=== PATIENT | female | born 1935 | race Caucasian/White ===

== ENCOUNTER 2020-11-04 14:57 | Inpatient (IN) | payer MEDICARE, OTHER ==
[~2020-11-04] VITALS: Ht 165.1 cm; Wt 58.3 kg
[~2020-11-04 14:57] MED LIST: CYSTEX TABLET1 EACH PO; DEPO-MEDRO80 MG/1 ML PO; DEXILANT60 MG PO; FLAGYL500 MG PO; MACRODANTIN100 MG PO; PEPCID20 MG PO; PRESERVISION T1 EACH PO; XOPENEX HFA15 G1; Z.0.ADVAIR 250-501 E; Z.0.ASPIRIN CHEW81 M PO; Z.0.COREG6.25 MG PO; Z.0.CRESTOR5 MG; Z.0.LEVOTHROID50 MCG PO; Z.0.LEXAPRO10 MG PO; Z.0.NORVASC2.5 MG PO; Z.0.PLAVIX75 MG
[2020-11-04] MEDS ORDERED: SODIUM CHLORIDE 0.9% 1000ML 1,000 ML IV SCH (15:45)
[2020-11-04 15:54] LABS: CLARITY,URINE HAZY (CLEAR); COLOR,URINE YELLOW (YELLOW)
[2020-11-04 15:55] LABS: KETONES,URINE NEGATIVE (NEGATIVE); LEUKOCYTE ESTERASE ,URINE MODERATE (NEGATIVE); NITRITE,URINE NEGATIVE (NEGATIVE); PROTEIN,URINE DIPSTICK NEGATIVE (NEGATIVE); URINE UROBILINOGEN 0.2 mg/dL (0.2 - 1)
[2020-11-04 15:57] LABS: BASOPHILS # (AUTO) 0.1 (0.0-0.1); BASOPHILS % 0.7 % (0.0-1.0); EOSINOPHILS # (AUTO) 0.2 (0.0-0.4); EOSINOPHILS % 2.9 % (0.0-6.0); HEMATOCRIT 37.6 % (34.2-44.1); HEMOGLOBIN 11.9 g/dL (12.0-16.0); LYMPHOCYTES # (AUTO) 2.3 (1.0-3.2); LYMPHOCYTES % 31.9 % (18.0-39.1); MEAN CORPUSCULAR HEMOGLOBIN 29.7 pg (28-32); MEAN CORPUSCULAR HGB CONC 31.6 g/dL (31-35); MEAN CORPUSCULAR VOLUME 93.8 fL (81-99); MONOCYTES # (AUTO) 0.7 (0.2-0.8); NEUTROPHILS % 55.1 % (38.7-80.0); PLATELET COUNT 242 x10e3/uL (140-360); RED BLOOD COUNT 4.01 x10e6/uL (3.6-5.1); RED CELL DISTRIBUTION WIDTH 13.2 % (11.7-14.4)
[2020-11-04 16:12] LABS: BACTERIA,URINE MODERATE /HPF; EPITHELIAL CELLS,URINE FEW /LPF; RBC,URINE 0-5 /HPF (0-5)
[2020-11-04 16:13] LABS: YEAST,URINE MODERATE
[2020-11-04 16:18] LABS: ALANINE AMINOTRANSFERASE 14 IU/L (0-55); ALBUMIN 3.9 g/dL (3.5-5.0); ALBUMIN/GLOBULIN RATIO 1.3 (0.8-2.0); ALKALINE PHOSPHATASE 89 IU/L (40-150); BLOOD UREA NITROGEN 16 mg/dL (7-26); BUN/CREATININE RATIO 22 (6-25); CALCIUM 9.3 mg/dL (8.4-10.2); CARBON DIOXIDE 29 mmol/L (22-29); CHLORIDE 106 mmol/L (98-107); CREATININE, SERUM 0.74 mg/dL (0.57-1.11); EST GLOMERULAR FILTRATION RATE > 60 ML/MIN (60-); GLUCOSE 85 mg/dL (74-118); SODIUM 143 mmol/L (136-145)
[2020-11-04] MEDS ORDERED: MORPHINE SULFATE INJ 2 MG/ML SYR IV PRN (16:45)
[2020-11-04] MEDS: AZTREONAM 1 GM/NS 50 ML 50 ML IV SCH (17:22)
[2020-11-04] MEDS ORDERED: FLUCONAZOLE 100 MG/NS 50 ML 50 ML IV ONE (17:30)
[2020-11-04] MEDS ORDERED: METOPROLOL TARTRATE INJ 1 MG/ML VIAL IV PRN (19:30)
[2020-11-04] MEDS: CARVEDILOL 12.5 MG TAB PO SCH (19:53)
[2020-11-04 20:30] VITALS: BP 165/87
[2020-11-04] MEDS: MORPHINE SULFATE INJ 4 MG/ML INJ 1ML IV PRN (21:00)
[2020-11-04] MEDS: ONDANSETRON HCL INJ 2MG/ML 2ML 2 MG/ML VIAL IV PRN (21:00)
[2020-11-04 21:45] VITALS: BP 165/87
[2020-11-05] VITALS (8 sets, daily range): BP systolic 100–132; BP diastolic 52–64
[2020-11-05] MEDS ORDERED: SODIUM CHLORIDE 0.9% 250ML 250 ML ONE (04:29)
[2020-11-05] MEDS: AZTREONAM 1 GM/NS 50 ML 50 ML IV SCH ×2 (04:30→16:15)
[2020-11-05] MEDS: MORPHINE SULFATE INJ 4 MG/ML INJ 1ML IV PRN (04:30)
[2020-11-05] MEDS: ONDANSETRON HCL INJ 2MG/ML 2ML 2 MG/ML VIAL IV PRN (04:30)
[2020-11-05 05:04] LABS: BASOPHILS # (AUTO) 0.1 (0.0-0.1); BASOPHILS % 0.8 % (0.0-1.0); EOSINOPHILS # (AUTO) 0.2 (0.0-0.4); EOSINOPHILS % 3.2 % (0.0-6.0); HEMATOCRIT 33.4 % (34.2-44.1); HEMOGLOBIN 10.6 g/dL (12.0-16.0); LYMPHOCYTES # (AUTO) 2.5 (1.0-3.2); LYMPHOCYTES % 39.7 % (18.0-39.1); MEAN CORPUSCULAR HGB CONC 31.7 g/dL (31-35); MEAN CORPUSCULAR VOLUME 94.6 fL (81-99); MONOCYTES # (AUTO) 0.6 (0.2-0.8); MONOCYTES % 9.9 % (4.4-11.3); NEUTROPHILS # (AUTO) 2.9 (2.1-6.9); NEUTROPHILS % 46.2 % (38.7-80.0); PLATELET COUNT 201 x10e3/uL (140-360); RED BLOOD COUNT 3.53 x10e6/uL (3.6-5.1); RED CELL DISTRIBUTION WIDTH 13.2 % (11.7-14.4)
[2020-11-05 05:25] LABS: ANION GAP 11.3 mmol/L (8-16); BLOOD UREA NITROGEN 14 mg/dL (7-26); BUN/CREATININE RATIO 19 (6-25); CALCIUM 8.5 mg/dL (8.4-10.2); CARBON DIOXIDE 28 mmol/L (22-29); CHLORIDE 110 mmol/L (98-107); CREATININE, SERUM 0.74 mg/dL (0.57-1.11); EST GLOMERULAR FILTRATION RATE > 60 ML/MIN (60-); GLUCOSE 91 mg/dL (74-118); POTASSIUM 4.3 mmol/L (3.5-5.1); SODIUM 145 mmol/L (136-145)
[2020-11-05] MEDS ORDERED: DOCUSATE SODIUM 100 MG CAP PO PRN (06:15)
[2020-11-05] MEDS: LEVOTHYROXINE SODIUM 75 MCG TAB PO SCH (06:38)
[2020-11-05] MEDS: FLUCONAZOLE 100 MG/NS 50 ML 50 ML IV SCH (07:45)
[2020-11-05] MEDS: ESCITALOPRAM OXALATE 10 MG TAB PO SCH (08:36)
[2020-11-05] MEDS: FAMOTIDINE 20 MG TAB PO SCH ×2 (08:36→16:15)
[2020-11-05] MEDS: AMLODIPINE BESYLATE 5 MG TAB PO SCH (08:36)
[2020-11-05] MEDS: CARVEDILOL 12.5 MG TAB PO SCH ×2 (08:36→16:27)
[2020-11-05] MEDS ORDERED: CARVEDILOL PO SCH (09:00)
[2020-11-05] MEDS ORDERED: ZOLPIDEM TARTRATE 5 MG TAB PO PRN (21:00)
[2020-11-06] VITALS (8 sets, daily range): BP systolic 104–146; BP diastolic 55–75
[2020-11-06] MEDS: AZTREONAM 1 GM/NS 50 ML 50 ML IV SCH ×2 (05:00→16:48)
[2020-11-06] MEDS: LEVOTHYROXINE SODIUM 75 MCG TAB PO SCH (05:00)
[2020-11-06] MEDS: FLUCONAZOLE 100 MG/NS 50 ML 50 ML IV SCH (05:50)
[2020-11-06] MEDS: MORPHINE SULFATE INJ 4 MG/ML INJ 1ML IV PRN (06:30)
[2020-11-06] MEDS: ONDANSETRON HCL INJ 2MG/ML 2ML 2 MG/ML VIAL IV PRN ×2 (06:30→20:23)
[2020-11-06] MEDS: AMLODIPINE BESYLATE 5 MG TAB PO SCH (08:57)
[2020-11-06] MEDS: CARVEDILOL 12.5 MG TAB PO SCH ×2 (08:57→17:32)
[2020-11-06] MEDS: ESCITALOPRAM OXALATE 10 MG TAB PO SCH (08:57)
[2020-11-06] MEDS: FAMOTIDINE 20 MG TAB PO SCH ×2 (08:57→17:32)
[2020-11-07] VITALS (7 sets, daily range): BP systolic 107–136; BP diastolic 54–68
[2020-11-07] MEDS: AZTREONAM 1 GM/NS 50 ML 50 ML IV SCH ×2 (04:08→16:47)
[2020-11-07] MEDS: LEVOTHYROXINE SODIUM 75 MCG TAB PO SCH (05:59)
[2020-11-07] MEDS: FLUCONAZOLE 100 MG/NS 50 ML 50 ML IV SCH (05:59)
[2020-11-07] MEDS: AMLODIPINE BESYLATE 5 MG TAB PO SCH (09:10)
[2020-11-07] MEDS: FAMOTIDINE 20 MG TAB PO SCH ×2 (09:10→16:48)
[2020-11-07] MEDS: ESCITALOPRAM OXALATE 10 MG TAB PO SCH (09:10)
[2020-11-07] MEDS: CARVEDILOL 12.5 MG TAB PO SCH ×2 (09:10→16:47)
[2020-11-08] VITALS (9 sets, daily range): BP systolic 101–140; BP diastolic 49–65
[2020-11-08] MEDS: AZTREONAM 1 GM/NS 50 ML 50 ML IV SCH ×2 (04:00→16:46)
[2020-11-08] MEDS: FLUCONAZOLE 100 MG/NS 50 ML 50 ML IV SCH (05:51)
[2020-11-08] MEDS: LEVOTHYROXINE SODIUM 75 MCG TAB PO SCH (05:51)
[2020-11-08] MEDS: ESCITALOPRAM OXALATE 10 MG TAB PO SCH (09:28)
[2020-11-08] MEDS: FAMOTIDINE 20 MG TAB PO SCH ×2 (09:28→16:44)
[2020-11-08] MEDS: CARVEDILOL 12.5 MG TAB PO SCH ×2 (09:29→16:45)
[2020-11-08] MEDS: AMLODIPINE BESYLATE 5 MG TAB PO SCH (09:30)
[2020-11-08] MEDS ORDERED: CALCIUM CARBONATE 500 MG CHEWABLE TABS PO SCH (14:00)
[2020-11-08] MEDS ORDERED: CALCIUM CARBONATE 500 MG CHEWABLE TABS PO PRN (14:15)
[2020-11-09] VITALS: BP 125/66
[2020-11-09] MEDS: AZTREONAM 1 GM/NS 50 ML 50 ML IV SCH (04:00)
[2020-11-09] MEDS: ONDANSETRON HCL INJ 2MG/ML 2ML 2 MG/ML VIAL IV PRN (04:44)
[2020-11-09 04:51] VITALS: BP 140/68
[2020-11-09] MEDS: LEVOTHYROXINE SODIUM 75 MCG TAB PO SCH (06:00)
[2020-11-09] MEDS: FLUCONAZOLE 100 MG/NS 50 ML 50 ML IV SCH (06:12)
[2020-11-09] MEDS ORDERED: DOXYCYCLINE HY100 M3 PO (06:38)
[2020-11-09] MEDS ORDERED: FLUCONAZOLE100 MG PO (06:38)
[2020-11-09 07:15] VITALS: BP 124/61
[2020-11-09] MEDS: FAMOTIDINE 20 MG TAB PO SCH (07:58)
[2020-11-09] MEDS: ESCITALOPRAM OXALATE 10 MG TAB PO SCH (07:59)
[2020-11-09] MEDS: AMLODIPINE BESYLATE 5 MG TAB PO SCH (08:00)
[2020-11-09 08:09] VITALS: BP 124/61
[2020-11-09] MEDS: CARVEDILOL 12.5 MG TAB PO SCH (08:11)
[2020-11-09] MEDS ORDERED: OMEPRAZOLE 20 MG CAP PO SCH (09:00)
[2020-11-09] MEDS ORDERED: ONDANSETRON HCL 4 MG ORAL DISINTEGRATING TAB PO PRN (09:15)
== END 2020-11-09 10:26 | disposition home or self-care (01) | DRG 690 ==
LOC: ER 15:43 → ERHOLD 16:54 → MED/SURG 20:38
PROVIDERS: ADMIT Internal Medicine; ATTEND Internal Medicine
DX: N12 Tubulo-interstitial nephritis, not specified as acute or chronic (principal); B37.49 Other urogenital candidiasis; I10 Essential (primary) hypertension; E03.9 Hypothyroidism, unspecified; I25.10 Atherosclerotic heart disease of native coronary artery without angina pectoris; F32.9 Major depressive disorder, single episode, unspecified; Z95.5 Presence of coronary angioplasty implant and graft; E78.5 Hyperlipidemia, unspecified; Z88.1 Allergy status to other antibiotic agents; Z88.2 Allergy status to sulfonamides; Z88.8 Allergy status to other drugs, medicaments and biological substances; Z20.822 Contact with and (suspected) exposure to COVID-19
CPT/HCPCS: 36415; 76705; 76770; 80048; 80053; 81001; 83605; 85025; 87040; 87086; 99284; J1450; J2270; J2405; J7030; J7050; U0002